=== PATIENT | female | born 1995 ===

== ENCOUNTER 2023-12-17 20:55 | Emergency (ER) | payer MEDICAID, SELFPAY ==
[2023-12-17 22:00] VITALS: BP 117/75; PULSE 74; RESP 16; TEMP 36.6; O2SAT 99; BMI 20.5
[2023-12-17 22:58] LABS: Appearance Urine Clear (Clear); Bilirubin Urine Negative (Negative); Blood Urine Negative (Negative); Color Urine Yellow (Yellow); Glucose Urine Negative (Negative); Ketones Urine Negative (Negative); Leukocyte Esterase Urine Negative (Negative); Nitrite Urine Negative (Negative); Protein Urine Negative (Negative); Specific Gravity Urine 1.015 (1.000-1.030); Urobilinogen Urine 0.2 (0.2-1.0)
[2023-12-17 23:19] LABS: Basophils Absolute Auto 0.03 K/uL (0.00-0.30); Basophils Percent Auto 0.3 % (0.0-3.0); Eosinophils Absolute Auto 0.12 K/uL (0.00-0.50); Eosinophils Percent Auto 1.1 % (0.0-7.0); Hematocrit 43.5 % (33.0-51.0); Hemoglobin* 14.5 gm/dL (12.0-16.0); Immature Granulocytes Abs Auto 0.02 K/uL (0.00-0.30); Immature Granulocytes Pct Auto 0.2 %; Lymphocytes Absolute Auto 3.32 K/uL (0.90-2.90); Lymphocytes Percent Auto 31.4 % (20-44); Mean Corpuscular HGB Conc 33 gm/dL (32-36); Mean Corpuscular Hemoglobin 31 pg (26-34); Mean Corpuscular Volume 91 fL (80-100); Monocytes Percent Auto 6.3 % (0.0-11.0); Neutrophils Absolute Auto 6.41 K/uL (1.7-7.0); Neutrophils Percent Auto 60.7 % (42.0-72.0); Platelet Count* 241 K/uL (140-440); RDW Coefficient of Variation % 12.1 % (11.5-15.5); Red Blood Count 4.76 m/uL (4.00-5.20); White Blood Count* 10.56 K/uL (4.50-11.00)
--- NOTE | 2023-12-17 23:23 | ED.FEMALEGU ---
HPI - Female Genitourinary General Chief complaint: Urogenital Problems, Female Stated complaint: Sharp pains lower abdomen, poss yeast infection Time Seen by Provider: 12/17/23 22:09 Source: patient Mode of arrival: ambulatory Limitations: no limitations History of Present Illness HPI Narrative: Patient is a 28 year female presenting to emergency department for concerns of a yeast infection. For the past week and a half she has been having itching and burning sensation in the vaginal area. Has tried [id number] yeast infection treatment without any improvement in her symptoms. She denies history of yeast infections in the past. Also neb some lower abdominal cramping yesterday that has resolved. Is not currently having any abdominal pain. Is not having any nausea, fevers, chills, weakness, numbness, chest pain, shortness of breath, dysuria. Has noticed some white vaginal discharge that is new for her. Does states she missed her period. The no other concerns noted at this time. Related Data Home Medications ?Medication ?Instructions ?Recorded ?Confirmed aripiprazole 20 mg tablet 20 mg PO DAILY 12/17/23 12/17/23 citalopram 40 mg tablet (Celexa) 40 mg PO DAILY 12/17/23 12/17/23 lamotrigine 25 mg tablet 25 mg PO DAILY 12/17/23 12/17/23 Previous Rx's ?Medication ?Instructions ?Recorded metronidazole 500 mg tablet 500 mg PO BID #14 tabs 12/18/23 Allergies Allergy/AdvReac Type Severity Reaction Status Date / Time No Known Drug Allergies Allergy Verified 12/17/23 22:10 Review of Systems Status of ROS: Reports: 10 or more systems reviewed and unremarkable except as noted in History and below [facility] Social History Smoking Status: Unknown if ever smoked Exam Narrative: Exam Narrative: Const: Well-nourished, Well-developed, in mild distress Eyes: PERRL, no conjunctival injection, and symmetrical lids HENT: Atraumatic external nose and ears. Moist mucous membranes. Neck: Symmetric, trachea midline, No thyromegaly. CVS: RRR, No murmurs or gallops. Peripheral pulses 2+ and equal in all extremities RESP: Unlabored respiratory effort. Clear to auscultation bilaterally. GI: Nontender/Nondistended, No rebound or guarding. : No external rashes noted of the external genitalia. It is very mild amount of white discharge seen within the vaginal vault. No blood noted. MSK:Extremities w/o deformity, Normal Active ROM Skin: Warm, Dry. No rashes or lesions. Neuro: Normal Muscle tone, No focal neurological deficits. Psych: Awake, Alert, & Oriented x3. Appropriate mood and affect. Const: Vital Signs, click to edit/add: Vital Signs - 24 hr 12/17/23 22:00 12/18/23 00:33 12/18/23 00:34 Temperature 97.9 F 97.9 F 97.9 F Pulse Rate [Pulse Oximeter] 74 79 79 Respiratory Rate 16 16 16 Blood Pressure [Ri ght Upper Arm] 117/75 120/74 120/74 Pulse Oximetry 99 99 Oxygen Delivery Me thod Room Air Room Air Course Vital Signs Vital signs: Initial Vital Signs Temperature 97.9 F 12/17/23 22:00 Temperature Source Temporal Artery Scan 12/17/23 22:00 Pulse Rate 74 12/17/23 22:00 Pulse Rhythm Regular 12/17/23 22:00 Pulse Strength 3+ Normal 12/17/23 22:00 Respiratory Rate 16 12/17/23 22:00 Blood Pressure 117/75 12/17/23 22:00 Blood Pressure Mean 89 12/17/23 22:00 Blood Pressure Position Sitting 12/17/23 22:00 Pulse Oximetry 99 12/17/23 22:00 Oxygen Delivery Method Room Air 12/17/23 22:00 Vital Signs Temperature 97.9 F 12/17/23 22:00 Pulse Rate 74 12/17/23 22:00 Respiratory Rate 16 12/17/23 22:00 Blood Pressure 117/75 12/17/23 22:00 Pulse Oximetry 99 12/17/23 22:00 Oxygen Delivery Method Room Air 12/17/23 22:00 Temperature 97.9 F 12/18/23 00:34 Pulse Rate 79 12/18/23 00:34 Respiratory Rate 16 12/18/23 00:34 Blood Pressure 120/74 12/18/23 00:34 Pulse Oximetry 99 12/18/23 00:33 Oxygen Delivery Method Room Air 12/18/23 00:33 MDM - Female Genitourinary MDM Narrative Medical decision making narrative: Patient is a 28 year female presenting to the emergency department for the itchiness in her vaginal area. She was having abdominal pain yesterday but has fully resolved in a do not believe imaging would be beneficial at this time with the unnecessary radiation for a patient this age. Very unlikely to be appendicitis, SBO. Symptoms do not seem consistent in all with a ovarian torsion. I will do a pelvic exam in a swab for vaginitis panel, MIKE prep, gonorrhea and chlamydia were all done. Also ordered a CBC, CMP, urinalysis, urine test. CBC, CMP, urinalysis, urine test showed no concerning abnormalities. She has her MIKE prep shows no signs of Trichomonas, yeast, clue cells. Vaginitis panel along with for chlamydia and gonorrhea are pending. We can discharge her home at this time and will call her with results if they are positive as they will take a few hours. She is agreeable to this plan After she was discharged her vaginitis panel came back positive for bacterial vaginosis. My colleague prescribed her Flagyl. Lab Data Labs: Lab Results 12/17/23 12/17/23 12/17/23 Range/Units 22:09 23:07 23:20 WBC 10.56 (4.50-11.00) K/uL RBC 4.76 (4.00-5.20) m/uL Hgb 14.5 (12.0-16.0) gm/dL Hct 43.5 (33.0-51.0) % MCV 91 (80-100) fL MCH 31 (26-34) pg MCHC 33 (32-36) gm/dL RDW Coeff of Yaron 12.1 (11.5-15.5) % Plt Count 241 (140-440) K/uL Neut % (Auto) 60.7 (42.0-72.0) % Lymph % (Auto) 31.4 (20-44) % [place] % (Auto) 6.3 (0.0-11.0) % Eos % (Auto) 1.1 (0.0-7.0) % Baso % (Auto) 0.3 (0.0-3.0) % Neut # (Auto) 6.41 (1.7-7.0) K/uL Lymph # (Auto) 3.32 H (0.90-2.90) K/uL [place] # (Auto) 0.70 (0.00-0.90) K/UL Eos # (Auto) 0.12 (0.00-0.50) K/uL Baso # (Auto) 0.03 (0.00-0.30) K/uL Abs Immat Gran (auto) 0.02 (0.00-0.30) K/uL Imm/Tot Granulo (auto) 0.2 % Sodium 137 (135-149) mmol/L Potassium 3.6 (3.6-5.1) mmol/L Chloride 103 (96-114) mmol/L Carbon Dioxide 27 (20-32) mmol/L Anion Gap 7 (7-15) mEq/L BUN 12 (5-24) mg/dL Creatinine 0.7 (0.5-1.5) mg/dL Estimated Creat Clear 85.18 Estimated GFR 120 ml/min Glucose 86 (60-115) mg/dL Calcium 9.5 (8.4-10.6) mg/dL Total Bilirubin 0.4 (0.1-1.5) mg/dL AST 27 (12-35) U/L ALT 18 (4-35) U/L Alkaline Phosphatase 58 (40-150) U/L Total Protein 7.6 (6.0-8.3) g/dL Albumin 5.0 (3.3-5.0) g/dL Urine Color Yellow (Yellow) Urine Appearance Clear (Clear) Urine pH 7.0 (5.0-8.5) Ur Specific [place] 1.015 (1.000-1.030) Urine Protein Negative (Negative) Urine Glucose (UA) Negative (Negative) Urine Ketones Negative (Negative) Urine Blood Negative (Negative) Urine Nitrite Negative (Negative) Urine Bilirubin Negative (Negative) Urine Urobilinogen 0.2 (0.2-1.0) Ur Leukocyte Esterase Negative (Negative) Urine RBC 0-2 (0-2) Urine WBC 0-2 (0-5) Ur Squamous Epith Cells Few (None-Few) Amorphous Sediment Few A (None) Urine Bacteria None (None) Urine HCG, Qual Negative (Negative) Vaginal Trichomonas No Trichomonas Seen (None Seen) Vaginal Yeast No Yeast Seen (None Seen) Vaginal Clue Cells No Clue Cells Seen (None Seen) Vaginal Bacterial Vaginosis POSITIVE A (Negative) Vaginal Alicia species NOT DETECTED (No Detected) Vag C. glabrata/krusei NOT DETECTED (No Detected) Vag T. vaginalis NOT DETECTED (No Detected) C.trachomatis Ampl DNA NOT DETECTED (No Detected) N.gonorrhoeae Ampl DNA NOT DETECTED (No Detected) Discharge Plan Discharge Clinical Impression: Pruritus of vagina, Bacterial vaginal infection Patient Disposition: Home, Self-Care Condition: Stable Instructions: Vaginal Discharge (ED) Additional Instructions: I am not sure what is causing the symptoms at this time but I do recommend you follow-up with OB Gyne if they do continue. Return to emergency department for new or worsening symptoms. You can try Benadryl or other antihistamines for the itching. We will call you with your test results if they are positive. Prescriptions: New metronidazole 500 mg tablet 500 mg PO BID Qty: 14 0RF No Action citalopram [Celexa] 40 mg tablet 40 mg PO DAILY lamotrigine 25 mg tablet 25 mg PO DAILY aripiprazole 20 mg tablet 20 mg PO DAILY Follow Up/Referrals: Provider,Not a Local [Primary Care Provider] - Stand Alone Forms: ArchiveSocialth Info Instructions
[2023-12-17 23:25] LABS: Slide Review Reflex No
[2023-12-17 23:31] LABS: Chloride* 103 mmol/L (96-114)
[2023-12-17 23:32] LABS: Potassium* 3.6 mmol/L (3.6-5.1); Sodium* 137 mmol/L (135-149)
[2023-12-17 23:34] LABS: Alkaline Phosphatase* 58 U/L (40-150); Anion Gap 7 mEq/L (7-15); Aspartate Amino Transferase* 27 U/L (12-35); Bilirubin Total* 0.4 mg/dL (0.1-1.5); Blood Urea Nitrogen* 12 mg/dL (5-24); Carbon Dioxide* 27 mmol/L (20-32); Creatinine* 0.7 mg/dL (0.5-1.5); Est. Creatinine Clearance* 85.18; Estimated Glomerular Filt Rate 120 ml/min; Total Protein* 7.6 g/dL (6.0-8.3)
[2023-12-17 23:35] LABS: Alanine Aminotransferase* 18 U/L (4-35); Calcium* 9.5 mg/dL (8.4-10.6); Glucose* 86 mg/dL (60-115)
[2023-12-17 23:41] LABS: Amorphous Sediment Urine Few; RBC Urine 0-2 (0-2); Squamous Epithelial Cell Urine Few (None-Few); Ur HCG Qualitative* Negative (Negative); WBC Urine 0-2 (0-5)
[2023-12-17 23:43] LABS: Yeast No Yeast Seen (None Seen)
[2023-12-17 23:44] LABS: Clue Cells No Clue Cells Seen (None Seen); Trichomonas No Trichomonas Seen (None Seen)
[2023-12-18 00:33] VITALS: BP 120/74; PULSE 79; RESP 16; TEMP 36.6; O2SAT 99
[2023-12-18 00:34] VITALS: BP 120/74; PULSE 79; RESP 16; TEMP 36.6
[2023-12-18 00:49] LABS: Bacterial Vaginosis* POSITIVE (Negative); Candida glab/krus NOT DETECTED (No Detected); Candida species NOT DETECTED (No Detected); Trichomonas vaginalis NOT DETECTED (No Detected)
[2023-12-18 01:21] LABS: Chlamydia DNA Amplified* NOT DETECTED (No Detected); GC DNA Amplified* NOT DETECTED (No Detected)
== END 2023-12-18 00:34 | disposition home or self-care (01) ==
PROVIDERS: Emergency Provider Student in an Organized Health Care Education/Training Program
DX: N76.0 Acute vaginitis (principal); B96.89 Other specified bacterial agents as the cause of diseases classified elsewhere; L29.2 Pruritus vulvae; Z11.3 Encounter for screening for infections with a predominantly sexual mode of transmission
CPT/HCPCS: 36415; 80053; 81001; 81025; 81513; 85025; 87210; 87481; 87491; 87591; 87661; 87801; 99283